=== PATIENT | male | born 1995 | race Caucasian/White ===

== ENCOUNTER 2017-08-08 18:46 | Emergency (ER) | payer SELFPAY ==
[2017-08-08 19:27] VITALS: BP 130/85
--- NOTE | 2017-08-08 20:08 | UC ---
Hand/Wrist HPI - HPI Summary HPI Summary: Pt c/o sudden onset of right wrist pain. Denies injury or trauma. Pt states he was skiing and holding a ski pole when sudden onset of right wrist pain began. - History Of Current Complaint Chief Complaint: UCUpperExtremity Stated Complaint: RT WRIST INJURY Time Seen by Provider: 08/08/17 19:58 Hx Obtained From: Patient ?: No Onset/Duration: Sudden Onset Severity Initially: Mild Severity Currently: Mild Character Of Pain: Sharp, Dull Aggravating Factor(s): Movement Alleviating Factor(s): Rest Associated Signs And Symptoms: Positive: Negative Related History: Dominant Hand Right - Risk Factors Compartment Syndrome Risk Factors: Pain - Allergies/Home Medications Allergies/Adverse Reactions: Allergies Allergy/AdvReac Type Severity Reaction Status Date / Time Erythromycin [From Pediazole] Allergy Intermediate Rash Verified 08/08/17 19:26 Sulfisoxazole Allergy Intermediate Rash Verified 08/08/17 19:26 [From Pediazole] PMH/Surg Hx/FS Hx/Imm Hx Previously Healthy: Yes - Surgical History Surgical History: None - Family History Known Family History: Positive: Cardiac Disease - Social History Occupation: Student Lives: With Family Alcohol Use: Rare Substance Use Type: None Smoking Status (MU): Never Smoked Tobacco Have You Smoked in the Last Year: No - Immunization History Most Recent Influenza Vaccination: Not the Season Vaccination Up to Date: Yes Review of Systems Constitutional: Negative Skin: Negative Eyes: Negative ENT: Negative Respiratory: Negative Cardiovascular: Negative Gastrointestinal: Negative Genitourinary: Negative Motor: Other - pain wiht ROM Neurovascular: Negative Musculoskeletal: Decreased ROM - pain with ROM, Myalgia Neurological: Negative Psychological: Negative Is Patient Immunocompromised?: No All Other Systems Reviewed And Are Negative: Yes Physical Exam Triage Information Reviewed: Yes Appearance: Well-Appearing Vital Signs: Initial Vital Signs Temp 98.5 F 08/08/17 19:19 Pulse 93 08/08/17 19:19 Resp 14 08/08/17 19:19 BP 130/85 08/08/17 19:19 Pulse Ox 99 08/08/17 19:19 Vital Signs Reviewed: Yes Eye Exam: Normal ENT Exam: Normal Dental Exam: Normal Neck exam: Normal Respiratory Exam: Normal Respiratory: Positive: No respiratory distress Musculoskeletal Exam: Normal Musculoskeletal: Positive: Strength Intact, ROM Limited @ - pain with ROM right wrist Neurological Exam: Normal Psychological Exam: Normal Skin Exam: Normal Hand/Wrist Course/Dx - Differential Dx/Diagnosis Differential Diagnosis/HQI/PQRI: Gout, Tendonitis Provider Diagnoses: right wrist pain. Tendonitis? Discharge - Discharge Plan Condition: Stable Disposition: HOME Patient Education Materials: Arthralgia (ED) Referrals: Dk Murray MD [Medical Doctor] - If Needed Jocelyne Kiser MD [Primary Care Provider] - If Needed
[2017-08-08] MEDS ORDERED: Ibuprofen TAB* 600 MG PO ONE (20:13)
== END 2017-08-08 20:23 | disposition home or self-care (01) ==
LOC: UCCORT 18:46
DX: M25.531 Pain in right wrist (principal); Z88.1 Allergy status to other antibiotic agents; Z88.2 Allergy status to sulfonamides
CPT/HCPCS: 99213; A9270-GY; G0463